=== PATIENT | male | born 1940 | race Caucasian/White ===

== ENCOUNTER 2020-05-24 11:46 | Emergency (ER) | payer MEDICARE, OTHER ==
[~2020-05-24 11:46] MED LIST: AMMONIUM LACTA225 GM TD; ASPIRIN81 MG PO; BACTRIM 400-801 EACH PO; BRILINTA90 MG PO; CLARITIN10 M2 PO; COLACE 100MG C100 MG PO; COLCRYS0.6 MG PO; FINASTERIDE5 MG PO; FLOMAX 0.4 MG0.4 MG PO; ISOSORBIDE MONO60 MG PO; LISINOPRIL40 MG PO; LORTAB 5-325 M1 EACH PO; LOTRISONE CREAM45 GM TD; METOPROLOL SUCC25 MG PO; NEURONTIN 400400 MG PO; NITROSTAT0.4 MG SL; NORVASC 5 MG TAB5 MG PO; OMEPRAZOLE40 MG PO; SENNA8.6 MG PO; SYNTHROID 150150 MCG PO; SYNTHROID175 MCG PO; ZYLOPRIM 100 M100 MG PO
[2020-05-24 14:00] LABS: HEMOGLOBIN 12.4 gm/dl (14.0-17.5); RED BLOOD COUNT 3.93 M/UL (4.20-5.50); WHITE BLOOD COUNT 8.5 K/UL (4.5-11.0)
[2020-05-24 14:26] LABS: BUN/CREATININE RATIO 18 (0-10)
== END 2020-05-24 16:53 | disposition left against medical advice (07) ==
LOC: ER1 11:46
PROVIDERS: Physician Assistant Medical
DX: R06.02 Shortness of breath (principal); R91.8 Other nonspecific abnormal finding of lung field; I25.2 Old myocardial infarction; I12.9 Hypertensive chronic kidney disease with stage 1 through stage 4 chronic kidney disease, or unspecified chronic kidney disease; N18.9 Chronic kidney disease, unspecified; F17.220 Nicotine dependence, chewing tobacco, uncomplicated; Z88.8 Allergy status to other drugs, medicaments and biological substances; Z91.041 Radiographic dye allergy status; Z95.1 Presence of aortocoronary bypass graft; Z53.20 Procedure and treatment not carried out because of patient's decision for unspecified reasons
CPT/HCPCS: 70490; 71045; 80053; 83880; 84484; 85025; 93005; 96374; 99284

== ENCOUNTER → 2020-09-07 | Outpatient (CLI) | payer MEDICARE, OTHER | LOC: HEART 5 15:30 | DX: I25.10 Atherosclerotic heart disease of native coronary artery without angina pectoris (principal); R06.02 Shortness of breath; I07.1 Rheumatic tricuspid insufficiency; I34.0 Nonrheumatic mitral (valve) insufficiency | CPT/HCPCS: 93306 ==

== ENCOUNTER → 2020-11-02 | Outpatient (CLI) | payer MEDICARE, OTHER | LOC: HEART 5 07:55 | DX: I25.119 Atherosclerotic heart disease of native coronary artery with unspecified angina pectoris (principal); Z98.61 Coronary angioplasty status | CPT/HCPCS: 78452; A9502; J2785 ==